=== PATIENT | female | born 1975 | race African-American/Black ===

== ENCOUNTER 2016-03-29 20:55 | Inpatient (IN) | payer MEDICAID ==
[~2016-03-29] VITALS: Ht 170.2 cm; Wt 119.9 kg
[2016-03-29] MEDS: NITROGLYCERIN 0.4 MG SL 25 TABS/BTL SL SCH ×3 (20:50→21:25)
[~2016-03-29 20:55] MED LIST: ASPI81TA45 PO; BLOOKIT5; FURO40TA PO; ISOS60 PO; LISI-363 PO; METF500 PO; METO50TA PO
[2016-03-29 20:58] VITALS: BP 199/113; PULSE 124; RESP 18; TEMP 98.4; O2SAT 96
[2016-03-29] MEDS ORDERED: FURO1TAB62 PO (21:11)
[2016-03-29] MEDS ORDERED: LISI-515 PO (21:11)
[2016-03-29] MEDS ORDERED: METF500T PO (21:11)
[2016-03-29] MEDS ORDERED: METO50TA PO (21:11)
[2016-03-29] MEDS ORDERED: ASPIRIN 81 MG CHEW TAB PO ONE (21:15)
[2016-03-29] MEDS ORDERED: NITROGLYCERIN 2% OINT 1 GM PACKET TOP ONE (21:15)
[2016-03-29] MEDS ORDERED: SODIUM CHLORIDE 0.9% FLUSH 5 ML FLUSH IVF PRN (21:15)
--- NOTE | 2016-03-29 21:20 | PD ---
HPI Chief Complaint: Chest Pain Time Seen by Provider: 21:05 Travel History International Travel<30 days: No Contact w/Intl Traveler<30days: No Traveled to known affect area: No History of Present Illness HPI The patient is a 40 year old female who presents to the [facility] emergency department with a history of Tuesday not beginning to feel well. The patient reports that she had a friend of her child's come over that was sick and she thought that she may be getting the illness. She reports that she began to have chills and a feverish sensation without a fever when she checked. She reports that she then began to have a dry cough and felt like something was stuck in her throat almost like a postnasal drip. She denies having any nasal congestion or discharge associated with this. She reports that she then began to have chest pain and shortness of breath. She reports that she does have a history of congestive heart failure. She reports that she's had problems with her breathing since June 2014 after having complications from a C -section delivery. The patient reports that she has a history of hyperthyroid disorder. She reports that she is supposed to be followed by an offal baler , however she is having difficulty getting into one related to her insurance. She has also not seen a primary care doctor recently as her insurance has changed and she did not receive her card. The patient reports that she has had some weight loss recently related to increased activity. She denies having any worsening edema. She reports that she ran out of a month ago her furosemide and lisinopril. She reports that she has been having the dose of her metoprolol as metformin to make this last longer. The patient arrives anxious appearing, diaphoretic, tachycardic, and hypertensive. The patient reports that she believes that she may have had a stroke or heart attack in the past. She is not sure which. The patient reports that she has had vomiting related to her throat congestion and a posttussive emesis. She reports that her stools have been slightly loose. The patient denies any recent neck pain, abdominal pain, urinary symptoms, or neurologic symptoms. LMP: [facility] Past Medical History Narrative Medical The patient's past medical history is significant for obesity, hypertension, hypertensive cardiomyopathy with mild left ventricular hypertrophy and a prior ejection fraction of 40-45% with diffuse hypokinesis on an echo that was done in June 2014, history of diabetes mellitus, history of Graves' disease, History of anxiety disorder. Anxiety: Yes Cancer: No Cardiovascular Problems: Yes Chest Pain: Yes (FEB 2014) Congestive Heart Failure: Yes (HX FEB 2014) Diabetes: Yes Diminished Hearing: No Endocrine: Yes (GRAVES DISEASE) Genitourinary: No Hypertension: Yes Immune Disorder: No Musculoskeletal: No Neurologic: No Reproductive: No Respiratory: Yes Thyroid Disease: Yes (HYPERTHYROIDISM) LMP: IUD PT STATES SHE DOESNT GET THEM : 5 Para: 4 Miscarriage: 0 : 0 Past Surgical History Narrative Surgical The patient's past surgical history is significant for a 5 Section: Yes (X5) Gynecologic Surgery: Yes Hysterectomy: Yes Other Surgery: Yes (c-[id number]) Social History Alcohol Use: No Tobacco Use: No Substance Use: Yes (pot) Allergies-Medications (Allergen,Severity, Reaction): Coded Allergies: Thyroid Agents (Verified Allergy, Intermediate, 03/29/16) Reported Meds & Prescriptions Reported Meds & Active Scripts Active Reported Lasix (Furosemide) 20 Mg Tab 20 Mg PO BID Lisinopril 20 Mg Tab 20 Mg PO DAILY Metformin (Metformin HCl) 500 Mg Tab 500 Mg PO BIDPC With meals Metoprolol Tartrate 50 Mg Tab 50 Mg PO BID Review of Systems Except as stated in HPI: all other systems reviewed are Neg General / Constitutional: Positive: Fever (fever is), Chills Eyes: No: Visual changes HENT: Positive: Congestion, No: Headaches Cardiovascular: Positive: Chest Pain or Discomfort, Palpitations, Tachycardia, Dyspnea on exertion, No: Edema Respiratory: Positive: Cough, Shortness of Breath Gastrointestinal: No: Abdominal Pain Genitourinary: No: Dysuria Musculoskeletal: No: Pain Skin: No Rash Neurologic: No: Weakness Psychiatric: No: Depression Endocrine: No: Polydipsia Hematologic/Lymphatic: No: Easy Bruising Physical Exam Narrative General: The patient is a well-developed well-nourished female, anxious appearing on arrival, diaphoretic, tremulous, hypertensive, and tachycardic. Head and Neck exam: Head is normocephalic atraumatic. Eyes: Pupils are equal round and reactive to light. Nose: Midline septum with pink mucous membranes Mouth: Dentition unremarkable. Moist mucus membranes. Posterior oropharynx is not erythematous. No tonsillar hypertrophy. Uvula midline. Airway patent. Neck: No palpable lymphadenopathy. No nuchal rigidity. No thyromegaly. Cardiovascular: Sinus tachycardia in the low 100s without murmurs, gallops, or rubs. No pulse deficit to the extremities and simultaneous palpation of her radial artery and auscultation. Lungs: Clear to auscultation bilaterally. No wheezes, rhonchi, or rales. Abdomen: Soft, without tenderness to palpation in all 4 quadrants of the abdomen. No guarding, rebound, or rigidity. Normal bowel sounds are audible. Extremities: No clubbing or cyanosis. The patient has trace pedal edema.. 2+ pulses in all 4 extremities. No calf tenderness on palpation. Back: No spinous process tenderness to palpation. No costovertebral angle tenderness to palpation. Neurologic Exam: Grossly nonfocal. She is tremulous. Skin Exam: No rash noted. Intact skin that is warm and diaphoretic. Data Data Last Documented VS Vital Signs Date Time Temp Pulse Resp B/P Pulse Ox O2 Delivery O2 Flow Rate FiO2 03/29/16 22:51 96 Room Air 03/29/16 22:50 109 22 178/84 03/29/16 20:58 98.4 Orders Electrocardiogram (03/29/16 21:05) B-Type Natriuretic Peptide (03/29/16 21:05) Ckmb (Isoenzyme) Profile (03/29/16 21:05) Complete Blood Count With Diff (03/29/16 21:05) Comprehensive Metabolic Panel (03/29/16 21:05) D-Dimer (03/29/16 21:05) Magnesium (Mg) (03/29/16 21:05) Prothrombin Time / Inr (Pt) (03/29/16 21:05) Act Partial Throm Time (Ptt) (03/29/16 21:05) Troponin I (03/29/16 21:05) Lipase (03/29/16 21:05) Chest, Single Ap (03/29/16 21:05) Ecg Monitoring (03/29/16 21:05) Bilateral Bp Monitoring (03/29/16 21:05) Iv Access Insert/Monitor (03/29/16 21:05) Oximetry (03/29/16 21:05) Oxygen Administration (03/29/16 21:05) Aspirin Chew (Aspirin Chew) (03/29/16 21:15) Nitroglycerin 2% Oint (Nitroglycerin 2% (03/29/16 21:15) Sodium Chloride 0.9% Flush (Ns Flush) (03/29/16 21:15) Nitroglycerin Sl (Nitrostat Sl) (03/29/16 21:15) C-Reactive Protein (Crp) (03/29/16 21:05) Urinalysis - C+S If Indicated (03/29/16 21:05) Thyroid Stimulating Hormone (03/29/16 21:05) Ed Urine Pregnancytest Poc (03/29/16 21:05) CKMB (03/29/16 21:16) CKMB% (03/29/16 21:16) Ct Pulmonary Angiogram (03/29/16 22:30) Labetalol Inj (Trandate Inj) (03/29/16 22:45) Furosemide Inj (Lasix Inj) (03/29/16 23:00) Admit Order (Ed Use Only) (03/29/16 22:59) Labs Laboratory Tests Test 03/29/16 21:16 White Blood Count 7.9 TH/MM3 Red Blood Count 5.32 MIL/MM3 Hemoglobin 14.1 GM/DL Hematocrit 40.5 % Mean Corpuscular Volume 76.0 FL Mean Corpuscular Hemoglobin 26.4 PG Mean Corpuscular Hemoglobin 34.8 % Concent Red Cell Distribution Width 13.9 % Platelet Count 251 TH/MM3 Mean Platelet Volume 8.4 FL Neutrophils (%) (Auto) 56.5 % Lymphocytes (%) (Auto) 25.2 % Monocytes (%) (Auto) 17.7 % Eosinophils (%) (Auto) 0.4 % Basophils (%) (Auto) 0.2 % Neutrophils # (Auto) 4.4 TH/MM3 Lymphocytes # (Auto) 2.0 TH/MM3 Monocytes # (Auto) 1.4 TH/MM3 Eosinophils # (Auto) 0.0 TH/MM3 Basophils # (Auto) 0.0 TH/MM3 CBC Comment DIFF FINAL Differential Comment Prothrombin Time 11.1 SEC Prothromb Time International 1.0 RATIO Ratio Activated Partial 26.7 SEC Thromboplast Time D-Dimer Quantitative (PE/DVT) 1.07 MG/L FEU Sodium Level 141 MEQ/L Potassium Level 3.8 MEQ/L Chloride Level 106 MEQ/L Carbon Dioxide Level 27.1 MEQ/L Anion Gap 8 MEQ/L Blood Urea Nitrogen 7 MG/DL Creatinine 0.89 MG/DL Estimat Glomerular Filtration 85 ML/MIN Rate Random Glucose 126 MG/DL Calcium Level 8.7 MG/DL Magnesium Level 1.8 MG/DL Total Bilirubin 0.3 MG/DL Aspartate Amino Transf 28 U/L (AST/SGOT) Alanine Aminotransferase 28 U/L (ALT/SGPT) Alkaline Phosphatase 84 U/L Total Creatine Kinase 126 U/L Creatine Kinase MB 1.8 NG/ML Troponin I 0.10 NG/ML C-Reactive Protein 4.60 MG/DL B-Type Natriuretic Peptide 272 PG/ML Total Protein 7.6 GM/DL Albumin 3.2 GM/DL Lipase 153 U/L Thyroid Stimulating Hormone LESS THAN 3rd Gen 0.005 uIU/ML MDM Medical Decision Making Medical Screen Exam Complete: Yes Emergency Medical Condition: Yes Medical Record Reviewed: Yes Interpretation(s) Last Impressions CT Angiography 03/29/160 Signed Impressions: Service Date/Time: Tuesday, March 29, 2016 23:19 - CONCLUSION: 1. No evidence of pulmonary embolism. 2. Small mild right lower lung infiltrate. Travis Amaya MD Chest X-Ray 03/29/162104 Signed Impressions: Service Date/Time: Tuesday, March 29, 2016 21:15 - CONCLUSION: 1. Cardiomegaly with mild basilar airspace disease. Car Perez MD Differential Diagnosis Thyrotoxic storm, versus congestive heart failure exacerbation, versus pulmonary embolism versus hypertensive urgency Narrative Course During the course of the patients emergency department visit, the patients history, examination, and differential diagnosis were reviewed with the patient. The patient had IV access obtained and blood work sent for analysis. The patient was placed on a cardiac catheterization technician with oximetry and blood pressure monitoring. An EKG was done on arrival, the patient's EKG shows a sinus tachycardia rate of 110 QRS duration is 95 ms QTC is 414 ms T waves are inverted in V5 V6 the patient has evidence of left ventricular hypertrophy from poorly controlled hypertension, no acute ST segment elevation is noted. The patient was initially provided 162 mg of aspirin by mouth. The patient is given nitroglycerin sublingual every 5 minutes 3 both for the chest pain into lower her blood pressure, nitroglycerin 1 inch the chest wall was applied. The patients laboratory studies were reviewed and remarkable for white count of 7.9, hemoglobin 14.1, platelets 251 with 17.7 monocytes. CMP is remarkable for glucose 126, CPK within normal limits, troponin I 0.10, C-reactive protein 4.60, TSH less than 0.005, d-dimer 1.07, PT PTT within normal limits. Urinalysis shows 10 ketones rib bacteria, otherwise unremarkable. Radiology studies were reviewed and remarkable for a chest x-ray that shows cardiomegaly with mild bibasilar airspace disease. A CTA to rule out PE shows no evidence of pulmonary embolism, small mild right lower lung infiltrate. The patients results were discussed with the patient, including the plan of care. I explained that further testing and/ or monitoring is indicated based on the patients history, examination, and/ or laboratory findings. Therefore, I recommended admission for additional evaluation. The patient expressed understanding and was agreeable with this plan. The patient was admitted to the hospital in stable condition and [facility] Physician Communication Physician Communication The patient's case was discussed with Dr. Levi, who did agree to admit the patient for further evaluation and treatment at this time. Diagnosis Primary Impression: Chest pain, rule out acute myocardial infarction Additional Impressions: Hyperthyroidism Elevated troponin Acute exacerbation of congestive heart failure Qualified Code: I50.9 - Acute on chronic congestive heart failure, unspecified congestive heart failure type Oly Masters MD Mar 29, 2016 21:20
[2016-03-29 21:44] LABS: AUTOMATED NEUTROPHIL # 4.4 TH/MM3 (1.8-7.7); BASOPHIL % 0.2 % (0.0-2.0); EOSINOPHIL % 0.4 % (0.0-4.0); HEMATOCRIT 40.5 % (35.0-46.0); HEMO FLAGS DIFF FINAL; LYMPH % 25.2 % (9.0-44.0); MEAN CORPUSCULAR HEMOGLOBIN 26.4 PG (27.0-34.0); MEAN CORPUSCULAR HGB CONC 34.8 % (32.0-36.0); MONO % 17.7 % (0.0-8.0); NEUT % 56.5 % (16.0-70.0); PLATELET COUNT 251 TH/MM3 (150-450); RED BLOOD COUNT 5.32 MIL/MM3 (4.00-5.30); RED CELL DISTRIBUTION WIDTH 13.9 % (11.6-17.2); WHITE BLOOD COUNT 7.9 TH/MM3 (4.0-11.0)
[2016-03-29 22:00] LABS: APTT (PATIENT) 26.7 SEC (24.3-30.1); PROTHROMBIN TIME - PATIENT 11.1 SEC (9.8-11.6)
[2016-03-29 22:08] LABS: ANION GAP 8 MEQ/L (5-15); AST (GOT) 28 U/L (15-37); BICARBONATE 27.1 MEQ/L (21.0-32.0); BLOOD UREA NITROGEN 7 MG/DL (7-18); CHLORIDE 106 MEQ/L (98-107); GLOMERULAR FILTRATION RATE 85 ML/MIN (>89); MAGNESIUM 1.8 MG/DL (1.5-2.5); POTASSIUM 3.8 MEQ/L (3.5-5.1); SODIUM (NA) 141 MEQ/L (136-145)
[2016-03-29 22:17] LABS: ALKALINE PHOSPHATASE 84 U/L (45-117); ALT (GPT) 28 U/L (10-53); CREATINE KINASE 126 U/L (26-192); TOTAL BILIRUBIN ADULT 0.3 MG/DL (0.2-1.0)
[2016-03-29 22:43] LABS: CKMB 1.8 NG/ML (0.5-3.6)
[2016-03-29] MEDS ORDERED: LABETALOL HCL 100 MG/20 ML VIAL IV PUSH ONE (22:45)
--- NOTE | 2016-03-29 22:45 | RADRPT ---
EXAM DATE/TIME: 03/29/2016 21:15 [facility] COMPARISON: CHEST SINGLE AP, March 01, 2014, 22:48. INDICATIONS : Chest pain. MEDICAL HISTORY : None. SURGICAL HISTORY : None. ENCOUNTER: Initial ACUITY: 3 days PAIN SCORE: 10/10 LOCATION: middle chest. FINDINGS: A single view of the chest demonstrates cardiomegaly. Mild basilar airspace disease. No effusion. No pneumothorax. CONCLUSION: 1. Cardiomegaly with mild basilar airspace disease. Car Perez MD on March 29, 2016 at 22:43 Board Certified Radiologist. This report was verified electronically.
[2016-03-29 22:50] VITALS: BP 178/84; PULSE 109; RESP 22; O2SAT 96
[2016-03-29 22:51] VITALS: O2SAT 96
[2016-03-29] MEDS ORDERED: FUROSEMIDE 40 MG/4 ML VIAL IV PUSH ONE (23:00)
[2016-03-29 23:13] VITALS: BP 219/107; PULSE 109; RESP 18; TEMP 98.1; O2SAT 94
[2016-03-29] MEDS ORDERED: IOHEXOL 350 MG/ML 10 ML VIAL (for RAD DIAG) IV ONE (23:23)
--- NOTE | 2016-03-29 23:50 | RADRPT ---
EXAM DATE/TIME: 03/29/2016 23:19 [facility] COMPARISON: CT PULMONARY ANGIOGRAM, July 11, 2014, 19:34. INDICATIONS : Chest pain, short of breath and elevated d-dimer. IV CONTRAST: 73 cc Omnipaque 350 (iohexol) IV RADIATION DOSE: 23.38 CTDIvol (mGy) MEDICAL HISTORY : Hypertension. graves disease, diabetes. SURGICAL HISTORY : None. ENCOUNTER: Initial ACUITY: 1 day PAIN SCALE: 8/10 LOCATION: chest TECHNIQUE: Volumetric scanning of the chest was performed using a pulmonary embolism protocol MIP images were re constructed. Using automated exposure control and adjustment of the mA and/or kV according to patien t size, radiation dose was kept as low as reasonably achievable to obtain optimal diagnostic quality images. FINDINGS: PULMONARY ARTERIES: No filling defects are seen in the pulmonary arteries through the segmental level. LUNGS: There is a very mild small infiltrate in the posterior right lower lung. Otherwise, the lungs are hu ar and well-aerated. PLEURAE: There is no pleural thickening or pleural effusion. MEDIASTINUM: There is good visualization of the great vessels of the middle mediastinum. No evidence of mediastin al or hilar adenopathy/mass. Heart size is enlarged but stable. MUSCULOSKELETAL: Within normal limits for patient age. MISCELLANEOUS: The visualized upper abdominal organs demonstrate no acute abnormality. CONCLUSION: 1. No evidence of pulmonary embolism. 2. Small mild right lower lung infiltrate. Travis Amaya MD on March 29, 2016 at 23:47 Board Certified Radiologist. This report was verified electronically.
[2016-03-30] VITALS (11 sets, daily range): BP systolic 138–195; BP diastolic 58–107; PULSE 81–114; RESP 17–22; TEMP 98.1–98.6; O2SAT 95–99
[2016-03-30 00:16] LABS: BACTERIA, URINE RARE /hpf; BLOOD, URINE NEG (NEG); COMMENT (UR) CULT NOT INDICATED; CULTURE IF INDICATED CULT NOT INDICATED; GLUCOSE,URINE NEG (NEG); HYALINE CAST, URINE 1 /lpf (RARE); KETONE, URINE 10 mg/dL (NEG); MUCUS URINE FEW /lpf (OCC); NITRITE,URINE NEG (NEG); PH, URINE 5.5 (5.0-8.5); SQUAMOUS EPITHELIAL CELL URINE 2 /hpf (0-5); URINE COLOR YELLOW (YELLW/STRAW)
[2016-03-30] MEDS ORDERED: ONDANSETRON HCL 4 MG/2 ML VIAL IVP PRN (00:45)
[2016-03-30] MEDS ORDERED: cloNIDine HCL 0.2 MG TAB PO PRN (00:45)
[2016-03-30] MEDS ORDERED: NALOXONE HCL 0.4 MG/ML AMP IV PRN (00:45)
[2016-03-30] MEDS ORDERED: ACETAMINOPHEN 325 MG TAB PO PRN ×2 (00:45)
[2016-03-30] MEDS ORDERED: ENALAPRILAT 2.5 MG/2 ML VIAL IV PUSH PRN (00:45)
[2016-03-30] MEDS ORDERED: SODIUM CHLORIDE 0.9% FLUSH 5 ML FLUSH FLUSH PRN (00:45)
--- NOTE | 2016-03-30 00:50 | HHI.HP ---
HPI Service [facility] Primary Care Physician No Primary Care Physician Admission Diagnosis cp ro mi, intermediate troponin, chf exacerbation, hyperthyroid Diagnoses: Chief Complaint: Chest pain/shortness of breath Travel History International Travel<30 Days: No Contact w/Intl Traveler <30 Da: No Traveled to Known Affected Are: No History of Present Illness The patient is a 40-year-old female with past medical history of Graves' disease and cardiomyopathy who is presenting to the hospital with chest pain and shortness of breath. She says she has had a rough week. She said she traveled to [place] and has had a lot of anxiety. She said the flu went through her household. She has been experiencing a dry cough with no sputum production. She says she has been taking Mucinex to try to cough things up. She said that today her chest started hurting her. The chest pain is located at the left side of her chest and radiates down her left arm. She said it was a 10 out of 10 pain in severity at its worst. She said the chest pain is gone at this time. She said she had a coughing spell earlier which led to a bout of vomiting. She has been experiencing chills. She has shortness of breath. She says she is unable to lie flat. She sometimes wakes up from a sound sleep very short of breath. She says her weight fluctuates. She has not noticed swelling in her lower extremities. She is currently search of a primary care doctor. 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 Review of Systems Constitutional: COMPLAINS OF: Diaphoretic episodes, Chills Respiratory: COMPLAINS OF: Cough, Shortness of breath, DENIES: Sputum production Cardiovascular: COMPLAINS OF: Chest pain, Dyspnea on Exertion, PND, Orthopnea, DENIES: Lower Extremity Edema Gastrointestinal: COMPLAINS OF: Nausea, Vomiting Neurologic: COMPLAINS OF: Tremor Psychiatric: COMPLAINS OF: Anxiety Past Family Social History Past Medical History Graves' disease Cardiomyopathy Hypertension Diabetes Past Surgical History 4 Partial hysterectomy Allergies: Coded Allergies: Thyroid Agents (Verified Allergy, Intermediate, 03/29/16) Active Ordered Medications Current Medications Medications (Trade) Dose Ordered Sig/[place] Route Start Time Stop Time Status Last Admin (NS Flush) 2 ml UNSCH PRN IVF 03/29/16 21:15 (Lasix) 20 mg BID PO 03/30/16 09:00 (Prinivil) 40 mg DAILY PO 03/30/16 00:45 (Tenormin) 50 mg DAILY PO 03/30/16 00:45 (Catapres) 0.2 mg Q6H PRN PO 03/30/16 00:45 (Vasotec Inj) 2.5 mg Q6H PRN IV PUSH 03/30/16 00:45 Family History Diabetes CAD Social History The patient does not smoke. She has occasional alcohol use. Physical Exam Vital Signs Vital Signs Date Time Temp Pulse Resp B/P Pulse Ox O2 Delivery O2 Flow Rate FiO2 03/30/16 00:34 98.1 112 20 191/88 96 Room Air 03/29/16 23:13 98.1 109 18 219/107 94 Room Air 03/29/16 22:51 96 Room Air 03/29/16 22:51 95 Room Air 03/29/16 22:50 109 22 178/84 96 Room Air 03/29/16 21:05 117 25 97 Room Air 03/29/16 20:58 98.4 124 18 199/113 96 03/29/16 20:55 18 Physical Exam GENERAL: This is a well-nourished, well-developed patient, in no apparent distress. SKIN: No rashes, ecchymoses or lesions. HEAD: Atraumatic. Normocephalic. No temporal or scalp tenderness. EYES: Pupils equal round and reactive. Extraocular motions intact. No scleral icterus. No injection or drainage. ENT: Nose without bleeding, purulent drainage or septal hematoma. Throat without erythema, tonsillar hypertrophy or exudate. Uvula midline. Airway patent. NECK: Trachea midline. No JVD or lymphadenopathy. Supple, nontender, no meningeal signs. CARDIOVASCULAR: Tachycardic without murmurs, gallops, or rubs. RESPIRATORY: Clear to auscultation. Breath sounds equal bilaterally. No wheezes , rales, or rhonchi. GASTROINTESTINAL: Abdomen soft, non-tender, nondistended. No hepato-splenomegaly , or palpable masses. No guarding. MUSCULOSKELETAL: Extremities without clubbing, cyanosis, or edema. No joint tenderness, effusion, or edema noted. NEUROLOGICAL: Awake and alert. Cranial nerves II through XII intact. Motor and sensory grossly within normal limits. Five out of 5 muscle strength in all muscle groups. Normal speech. PSYCH: Anxious. Laboratory Laboratory Tests Test 03/29/16 03/29/16 21:16 23:44 White Blood Count 7.9 Red Blood Count 5.32 Hemoglobin 14.1 Hematocrit 40.5 Mean Corpuscular Volume 76.0 Mean Corpuscular Hemoglobin 26.4 Mean Corpuscular Hemoglobin 34.8 Concent Red Cell Distribution Width 13.9 Platelet Count 251 Mean Platelet Volume 8.4 Neutrophils (%) (Auto) 56.5 Lymphocytes (%) (Auto) 25.2 Monocytes (%) (Auto) 17.7 Eosinophils (%) (Auto) 0.4 Basophils (%) (Auto) 0.2 Neutrophils # (Auto) 4.4 Lymphocytes # (Auto) 2.0 Monocytes # (Auto) 1.4 Eosinophils # (Auto) 0.0 Basophils # (Auto) 0.0 CBC Comment DIFF FINAL Differential Comment Prothrombin Time 11.1 Prothromb Time International 1.0 Ratio Activated Partial 26.7 Thromboplast Time D-Dimer Quantitative (PE/DVT) 1.07 Sodium Level 141 Potassium Level 3.8 Chloride Level 106 Carbon Dioxide Level 27.1 Anion Gap 8 Blood Urea Nitrogen 7 Creatinine 0.89 Estimat Glomerular Filtration 85 Rate Random Glucose 126 Calcium Level 8.7 Magnesium Level 1.8 Total Bilirubin 0.3 Aspartate Amino Transf 28 (AST/SGOT) Alanine Aminotransferase 28 (ALT/SGPT) Alkaline Phosphatase 84 Total Creatine Kinase 126 Creatine Kinase MB 1.8 Troponin I 0.10 C-Reactive Protein 4.60 B-Type Natriuretic Peptide 272 Total Protein 7.6 Albumin 3.2 Lipase 153 Thyroid Stimulating Hormone LESS THAN 3rd Gen 0.005 Urine Color YELLOW Urine Turbidity CLEAR Urine pH 5.5 Urine Specific [place] 1.019 Urine Protein NEG Urine Glucose (UA) NEG Urine Ketones 10 Urine Occult Blood NEG Urine Nitrite NEG Urine Bilirubin NEG Urine Urobilinogen LESS THAN 2.0 Urine Leukocyte Esterase NEG Urine RBC 1 Urine WBC LESS THAN 1 Urine Squamous Epithelial 2 Cells Urine Bacteria RARE Urine Hyaline Casts 1 Urine Mucus FEW Microscopic Urinalysis Comment CULT NOT INDICATED Result Diagram: 03/29/16211503/29/162115 Imaging Last Impressions CT Angiography 03/29/162229 Signed Impressions: Service Date/Time: Tuesday, March 29, 2016 23:19 - CONCLUSION: 1. No evidence of pulmonary embolism. 2. Small mild right lower lung infiltrate. Travis Amaya MD Chest X-Ray 03/29/162104 Signed Impressions: Service Date/Time: Tuesday, March 29, 2016 21:15 - CONCLUSION: 1. Cardiomegaly with mild basilar airspace disease. Car Perez MD Assessment and Plan Assessment and Plan Chest pain/ cardiomyopathy The pt has a history of cardiomyopathy s/t Grave's Disease. She presents with left sided chest pain. She has never had a stress test or cardiac cath. Symptoms have resolved. EKG with sinus tachycardia and inverted T waves in V5 and V6. Initial troponin is 0.1. BNP is 272. CT scan did reveal an infiltrate which could explain the pt's chest pain. No PE identified. - trend troponins. - monitor on telemetry. - diurese with Lasix. - consult cardiology. - antibiotics for PNA. - oxygen as needed. - PT. Grave's Disease The pt presents with symptoms of thyrotoxicosis. She improved with labetalol. - start atenolol 50 mg daily. Hold home Lopressor. - consider adding methimazole. - check free T3 and T4. Hypertensive emergency The pt's blood pressure has been markedly elevated. - resume lisinopril and add atenolol. Will add amlodipine if needed. - Vasotec and clonidine as needed. CAP CT scan revealed a small right sided infiltrate. - start ceftriaxone and azithromycin. - sputum culture. Diabetes The pt is on metformin as an outpt. - hold metformin. - insulin sliding scale. PPx: Lovenox. Code Status Full. Discussed Condition With Pt, Dr. Masters. Physician Certification 2 Midnight Certification Type: Admission for Inpatient Services Order for Inpatient Services The services are ordered in accordance with Medicare regulations or non- Medicare payer requirements, as applicable. In the case of services not specified as inpatient-only, they are appropriately provided as inpatient services in accordance with the 2-midnight benchmark. Estimated LOS (days): 2 days is the estimated time the patient will need to remain in the hospital, assuming treatment plan goals are met and no additional complications. Post-Hospital Plan: Home Sayess,Thomas. DO Mar 30, 2016 00:50
[2016-03-30] MEDS: LISINOPRIL 20 MG TAB PO SCH ×2 (02:34→09:27)
[2016-03-30] MEDS: DOCUSATE SODIUM 100 MG CAP PO SCH ×2 (02:34→12:37)
[2016-03-30] MEDS: ENOXAPARIN SODIUM 40 MG/0.4 ML SYRINGE SQ SCH (02:35)
[2016-03-30] MEDS: cefTRIAXone INJ 1,000 MG in SODIUM CHLORIDE 0.9% INJ 100 ML IV SCH (02:35)
[2016-03-30] MEDS: ATENOLOL 50 MG TAB PO SCH (04:05)
[2016-03-30] MEDS: AZITHROMYCIN INJ 500 MG in SODIUM CHLOR 0.9% 250 ML INJ 250 ML IV SCH (04:06)
[2016-03-30 04:33] LABS: AUTOMATED NEUTROPHIL # 2.6 TH/MM3 (1.8-7.7); BASOPHIL % 0.3 % (0.0-2.0); EOSINOPHIL % 0.5 % (0.0-4.0); HEMATOCRIT 38.7 % (35.0-46.0); HEMO FLAGS DIFF FINAL; LYMPH % 28.1 % (9.0-44.0); LYMPHOCYTE # 1.5 TH/MM3 (1.0-4.8); MEAN CORPUSCULAR HEMOGLOBIN 25.4 PG (27.0-34.0); MEAN CORPUSCULAR HGB CONC 33.9 % (32.0-36.0); MONO % 21.8 % (0.0-8.0); NEUT % 49.3 % (16.0-70.0); PLATELET COUNT 219 TH/MM3 (150-450); RED BLOOD COUNT 5.16 MIL/MM3 (4.00-5.30); RED CELL DISTRIBUTION WIDTH 13.6 % (11.6-17.2); WHITE BLOOD COUNT 5.4 TH/MM3 (4.0-11.0)
[2016-03-30 04:52] LABS: ALT (GPT) 26 U/L (10-53); ANION GAP 9 MEQ/L (5-15); AST (GOT) 23 U/L (15-37); BICARBONATE 26.6 MEQ/L (21.0-32.0); BLOOD UREA NITROGEN 8 MG/DL (7-18); CHLORIDE 104 MEQ/L (98-107); GLOMERULAR FILTRATION RATE 128 ML/MIN (>89); POTASSIUM 3.5 MEQ/L (3.5-5.1); SODIUM (NA) 140 MEQ/L (136-145)
[2016-03-30 04:53] LABS: FREE T3 9.18 PG/ML (2.18-3.98); FREE T4 3.63 NG/DL (0.76-1.46)
[2016-03-30 04:54] LABS: ALKALINE PHOSPHATASE 76 U/L (45-117); TOTAL BILIRUBIN ADULT 0.3 MG/DL (0.2-1.0)
[2016-03-30] MEDS: INSULIN ASPART SUPPLEMENTAL SCALE SQ SCH ×4 (06:55→21:35)
[2016-03-30] MEDS: SODIUM CHLORIDE 0.9% FLUSH 5 ML FLUSH FLUSH SCH ×2 (09:24→21:35)
--- NOTE | 2016-03-30 11:53 | MB ---
cc: GERARDO WONG MD DATE OF CONSULTATION 03/30/2016 DATE OF 1975 REASON FOR CONSULTATION Cardiomyopathy. HISTORY OF PRESENT ILLNESS Ms. Reed is a 40-year-old female who does have a history of a cardiomyopathy, hypertension and noncompliance. 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 She has been seen by multiple cardiologists including myself and not followed up. As well, she has not had a PCP and thus has run out of her BP meds several months ago. She reports that despite this, she had been doing just fine. She recently had a family trip to [place] where everybody had the flu. Now she has had a dry cough, fever and chills and pleuritic chest pain. She subsequently presented to the emergency room for assistance. She notes that she has had chest pain with coughing that has been up to 10/10. PAST MEDICAL HISTORY: Significant for - 1. Hypertension. 2. Cardiomyopathy. 3. Diabetes. 4. Graves disease. 5. Noncompliance. 6. Morbid obesity. SURGICAL HISTORY 1. Partial hysterectomy. 2. . ALLERGIES Reportedly to thyroid agents. OUTPATIENT MEDICATIONS None. As well, she cannot really remember her previous medications and dosing. FAMILY HISTORY Positive for CAD and diabetes. SOCIAL HISTORY The patient does not smoke. REVIEW OF SYSTEMS Except what is mentioned in the HPI, all 12 systems are negative. PHYSICAL EXAMINATION VITAL SIGNS: Initial vital signs were 124, 18, 199/113. Presently her blood pressure is 138/85. IN GENERAL: She is a morbidly obese female who is in no apparent distress. NECK: Free from JVD. LUNGS: The lungs and some wheezing/rhonchi in the right base. CARDIOVASCULAR EXAMINATION: She has a normal S1 and S1. I did not appreciate any murmurs, rubs or gallops. ABDOMEN: Soft. EXTREMITIES: Free from edema. EKG Sinus rhythm with inverted T-waves. LABORATORY VALUES Significant for white count of 5.4. Her creatinine is 0.62. Troponins are 0.01/0.01. IMPRESSIONS Cardiomyopathy - The patient does have a longstanding history of the same. I do agree with restarting her on a regimen that includes beta-gricelda, ANA inhibitor and diuretic as you have done. There is no overt failure at this point. It seems that her symptoms are mostly related to her upper respiratory tract illness and possible pneumonia with right lower lobe infiltrate. Of note, her most recent EF was May of 2014 with an EF of 45%. Uncontrolled hypertension - As above. Pleuritic chest pain - This can be managed conservatively by the primary team. URI, possible pneumonia - This will be managed by the primary team as well. I will be available on a p.r.n. basis and would be happy to see her should there be any further questions. Sincerely, Eboni Ovalles/SSB /7:51 AM /11:38 AM
--- NOTE | 2016-03-30 16:33 | EKG ---
Date Performed: 03/29/2016 Time Performed: 21:08:48 PTAGE: 40 years EKG: SINUS TACHYCARDIA POSSIBLE LEFT ATRIAL ENLARGEMENT LEFT VENTRICULAR HYPERTROPHY AND ST-T CH CHLOE When compared to previous tracing, the patient now has lateral ST depression, which may be secon bryce to ischemia and or Hypertrophy. Clinical correlation is suggested. ABNORMAL ECG PREVIOUS TRACING : 07/11/2014 17.15.14 DOCTOR: Sandra Paz Interpretating Date/Time 03/30/2016 16:32:55
--- NOTE | 2016-03-30 18:46 | HHI.PR ---
Addendum to Inpatient Note Addendum Reason: Additional Documentation Additional Information Patient c/o cough, sob improving. denies cp. Denies fevers or chills. Awake and alert, no respiratory distress. Auscultation of the lungs show diminished air entry bilaterally. S1S2 RRR, 1. Grave's hyperthyroidism 2. Cardiomyopathy 3. Demand ischemia 4. Hypertensive emergency 5. Hyperthyroidism Cardiology consulted. No chest pain currently. Will obtain a beta HCG and start the patient on Methimazole to treat hyperthyroidism. Continue IV antibiotics, supplemental o2 as needed. Place on duoneb's treatment. Samson Mcfadden MD Mar 30, 2016 18:46
[2016-03-30] MEDS ORDERED: MORPHINE SULFATE 4 MG/ML INJ IV PUSH PRN (19:00)
[2016-03-30] MEDS ORDERED: RESP: ALBUTEROL 2.5 MG/IPRATROPIUM 0.5 MG NEB (PRN) NEB (19:15)
[2016-03-30] MEDS: RESP: ALBUTEROL 2.5 MG/IPRATROPIUM 0.5 MG NEB (SCH) NEB (21:15)
[2016-03-30] MEDS: FUROSEMIDE 20 MG TAB PO SCH (21:35)
[2016-03-31] VITALS: BP 150/80; PULSE 91; RESP 18; TEMP 98.3; O2SAT 98
[2016-03-31 00:13] LABS: BETA HCG QUANT LESS THAN 1 MIU/ML (0-5)
[2016-03-31] MEDS: DOCUSATE SODIUM 100 MG CAP PO SCH ×2 (00:23→12:45)
[2016-03-31] MEDS: ENOXAPARIN SODIUM 40 MG/0.4 ML SYRINGE SQ SCH (00:27)
[2016-03-31] MEDS: cefTRIAXone INJ 1,000 MG in SODIUM CHLORIDE 0.9% INJ 100 ML IV SCH (00:29)
[2016-03-31] MEDS: AZITHROMYCIN INJ 500 MG in SODIUM CHLOR 0.9% 250 ML INJ 250 ML IV SCH (01:20)
[2016-03-31 04:00] VITALS: BP 155/80; PULSE 92; RESP 18; TEMP 98.2; O2SAT 98
[2016-03-31 06:52] LABS: AUTOMATED NEUTROPHIL # 1.7 TH/MM3 (1.8-7.7); BASOPHIL % 0.7 % (0.0-2.0); EOSINOPHIL # 0.1 TH/MM3 (0-0.4); EOSINOPHIL % 1.6 % (0.0-4.0); HEMATOCRIT 40.7 % (35.0-46.0); HEMO FLAGS DIFF FINAL; LYMPH % 48.5 % (9.0-44.0); LYMPHOCYTE # 2.6 TH/MM3 (1.0-4.8); MEAN CELL VOLUME 76.2 FL (80.0-100.0); MEAN CORPUSCULAR HEMOGLOBIN 25.2 PG (27.0-34.0); MEAN CORPUSCULAR HGB CONC 33.1 % (32.0-36.0); MONO % 18.1 % (0.0-8.0); NEUT % 31.1 % (16.0-70.0); PLATELET COUNT 222 TH/MM3 (150-450); RED BLOOD COUNT 5.35 MIL/MM3 (4.00-5.30); RED CELL DISTRIBUTION WIDTH 13.8 % (11.6-17.2); WHITE BLOOD COUNT 5.4 TH/MM3 (4.0-11.0)
[2016-03-31 07:00] VITALS: BP 148/59; PULSE 89; PULSE 97; RESP 16; TEMP 97.9; O2SAT 97
[2016-03-31] MEDS: INSULIN ASPART SUPPLEMENTAL SCALE SQ SCH ×2 (07:00→11:00)
[2016-03-31 07:03] LABS: ALT (GPT) 28 U/L (10-53); ANION GAP 9 MEQ/L (5-15); AST (GOT) 23 U/L (15-37); BICARBONATE 24.4 MEQ/L (21.0-32.0); BLOOD UREA NITROGEN 9 MG/DL (7-18); CHLORIDE 108 MEQ/L (98-107); GLOMERULAR FILTRATION RATE 168 ML/MIN (>89); MAGNESIUM 1.9 MG/DL (1.5-2.5); POTASSIUM 3.8 MEQ/L (3.5-5.1); SODIUM (NA) 141 MEQ/L (136-145)
[2016-03-31 07:05] LABS: ALKALINE PHOSPHATASE 68 U/L (45-117); TOTAL BILIRUBIN ADULT 0.3 MG/DL (0.2-1.0)
--- NOTE | 2016-03-31 07:41 | PD.CARD.PN ---
Subjective Subjective Remarks Pt without complaints Objective Medications Current Medications Medications (Trade) Dose Ordered Sig/[place] Route Start Time Stop Time Status Last Admin (Lasix) 20 mg BID PO 03/30/16 09:00 03/30/16 21:35 (Prinivil) 40 mg DAILY PO 03/30/16 00:45 03/30/16 09:27 (Tenormin) 50 mg DAILY PO 03/30/16 00:45 03/30/16 04:05 (Catapres) 0.2 mg Q6H PRN PO 03/30/16 00:45 03/30/16 12:48 (Vasotec Inj) 2.5 mg Q6H PRN IV PUSH 03/30/16 00:45 (NS Flush) 2 ml UNSCH PRN FLUSH 03/30/16 00:45 (NS Flush) 2 ml BID FLUSH 03/30/16 09:00 03/30/16 21:35 (Tylenol) 650 mg Q4H PRN PO 03/30/16 00:45 (Zofran Inj) 4 mg Q6H PRN IVP 03/30/16 00:45 (Colace) 100 mg Q12H PO 03/30/16 00:45 03/30/16 12:37 (Lovenox Inj) 40 mg Q24H SQ 03/30/16 00:45 03/31/16 00:27 (Tylenol) 650 mg Q6H PRN PO 03/30/16 00:45 (Roxicodone) 10 mg Q4H PRN PO 03/30/16 00:45 (Roxicodone) 5 mg Q4H PRN PO 03/30/16 00:45 Naloxone HCl 0.4 mg 0.4 mg UNSCH PRN IV 03/30/16 00:45 Ceftriaxone Sodium 1000 mg/ Sodium Chloride 100 ml @ 200 mls/hr Q24H IV 03/30/16 01:00 03/31/16 00:29 (Zithromax Inj/ NS 250 ml Inj) 250 ml @ 250 mls/hr Q24H IV 03/30/16 02:00 03/31/16 01:20 (Flu (Quadrivalent) Vaccine Inj) 0.5 ml ONCE ONCE IM 03/31/16 10:00 03/31/16 10:01 (Morphine Inj) 2 mg Q3H PRN IV PUSH 03/30/16 19:00 Vital Signs / I&O Vital Signs Date Time Temp Pulse Resp B/P Pulse Ox O2 Delivery O2 Flow Rate FiO2 03/31/16 04:00 98.2 92 18 155/80 98 03/31/16 00:00 98.3 91 18 150/80 98 03/30/16 20:00 98.4 92 18 160/73 97 03/30/16 16:00 87 03/30/16 16:00 98.6 91 18 155/58 99 03/30/16 15:26 90 03/30/16 12:30 94 172/104 03/30/16 10:40 98 03/30/16 10:32 98.5 96 17 160/107 96 03/30/16 09:33 94 22 180/95 95 Room Air I/O 03/30/16 03/30/16 03/30/16 03/31/16 03/31/16 03/31/16 07:00 15:00 23:00 07:00 15:00 23:00 Intake Total 0 ml 888 ml Balance 0 ml 888 ml Intake Oral 500 ml IV Total 0 ml 388 ml # Voids 3 3 # Bowel Movements 2 Physical Exam GENERAL: Well developed, well nourished. No acute distress. HEENT: Jugular venous pressure is normal. CHEST: Lungs clear to auscultation bilaterally. Unlabored respiratory effort. CARDIAC: Regular rate and rhythm without S3, S4, or murmur. ABDOMEN: Soft, nontender, no hepatosplenomegaly. Bowel sounds present. EXTREMITIES: No clubbing, cyanosis, or edema. Laboratory Laboratory Tests Test 03/30/16 03/31/16 09:35 05:45 Troponin I 0.10 NG/ML Human Chorionic Gonadotropin, LESS THAN 1 Quant MIU/ML White Blood Count 5.4 TH/MM3 Red Blood Count 5.35 MIL/MM3 Hemoglobin 13.5 GM/DL Hematocrit 40.7 % Mean Corpuscular Volume 76.2 FL Mean Corpuscular Hemoglobin 25.2 PG Mean Corpuscular Hemoglobin 33.1 % Concent Red Cell Distribution Width 13.8 % Platelet Count 222 TH/MM3 Mean Platelet Volume 8.0 FL Neutrophils (%) (Auto) 31.1 % Lymphocytes (%) (Auto) 48.5 % Monocytes (%) (Auto) 18.1 % Eosinophils (%) (Auto) 1.6 % Basophils (%) (Auto) 0.7 % Neutrophils # (Auto) 1.7 TH/MM3 Lymphocytes # (Auto) 2.6 TH/MM3 Monocytes # (Auto) 1.0 TH/MM3 Eosinophils # (Auto) 0.1 TH/MM3 Basophils # (Auto) 0.0 TH/MM3 CBC Comment DIFF FINAL Differential Comment Sodium Level 141 MEQ/L Potassium Level 3.8 MEQ/L Chloride Level 108 MEQ/L Carbon Dioxide Level 24.4 MEQ/L Anion Gap 9 MEQ/L Blood Urea Nitrogen 9 MG/DL Creatinine 0.49 MG/DL Estimat Glomerular Filtration 168 ML/MIN Rate Random Glucose 133 MG/DL Calcium Level 9.0 MG/DL Phosphorus Level 3.9 MG/DL Magnesium Level 1.9 MG/DL Total Bilirubin 0.3 MG/DL Aspartate Amino Transf 23 U/L (AST/SGOT) Alanine Aminotransferase 28 U/L (ALT/SGPT) Alkaline Phosphatase 68 U/L Total Protein 6.8 GM/DL Albumin 3.0 GM/DL Assessment and Plan Assessment and Plan Cardiomyopathy - The patient does have a longstanding history of the same. I do agree with restarting her on a regimen that includes beta-gricelda, ANA inhibitor and diuretic as you have done. There is no overt failure at this point. It seems that her symptoms are mostly related to her upper respiratory tract illness and possible pneumonia with right lower lobe infiltrate. Of note, her most recent EF was May of 2014 with an EF of 45%. 03/31 - no change Uncontrolled hypertension - better add amlodipine Pleuritic chest pain - resolved URI, possible pneumonia - This will be managed by the primary team as well. Noncompliance Dispo- ok for d/c from CV perspective Sandra Paz MD Mar 31, 2016 07:41
[2016-03-31] MEDS: RESP: ALBUTEROL 2.5 MG/IPRATROPIUM 0.5 MG NEB (SCH) NEB ×2 (08:30→11:29)
[2016-03-31 08:32] VITALS: O2SAT 96
[2016-03-31] MEDS ORDERED: amLODIPine BESYLATE 5 MG TAB PO SCH (09:00)
[2016-03-31] MEDS: ATENOLOL 50 MG TAB PO SCH ×2 (09:00→09:30)
[2016-03-31] MEDS: LISINOPRIL 20 MG TAB PO SCH (09:29)
[2016-03-31] MEDS: FUROSEMIDE 20 MG TAB PO SCH (09:29)
[2016-03-31] MEDS: SODIUM CHLORIDE 0.9% FLUSH 5 ML FLUSH FLUSH SCH (09:31)
[2016-03-31] MEDS ORDERED: INFLUENZA VIRUS VACCINE (QUADRIVALENT) 0.5 ML SYR IM ONE (10:00)
[2016-03-31 11:00] VITALS: BP 141/97; PULSE 88; RESP 18; TEMP 97.8; O2SAT 98
[2016-03-31] MEDS ORDERED: FURO20TA PO (14:47)
[2016-03-31] MEDS ORDERED: ATEN50TA PO (14:47)
[2016-03-31] MEDS ORDERED: METF500T PO (14:47)
[2016-03-31] MEDS ORDERED: AMLO5 PO (14:47)
[2016-03-31] MEDS ORDERED: LISI-515 PO (14:47)
--- NOTE | 2016-03-31 14:51 | HHI.DCPOC ---
Discharge Care Plan Diagnosis: (1) CAP (community acquired pneumonia) (2) Cardiomyopathy as manifestation of underlying disease (3) Hyperthyroidism (4) Acute exacerbation of congestive heart failure (5) Elevated troponin Goals to Promote Your Health * To prevent worsening of your condition and complications * To maintain your health at the optimal level Directions to Meet Your Goals Take your medications as prescribed Follow your dietary instruction Follow activity as directed Keep your appointments as scheduled Take your immunizations and boosters as scheduled If your symptoms worsen call your PCP, if no PCP go to Urgent Care Center or Emergency Room Smoking is Dangerous to Your Health. Avoid second hand smoke Call the 24-hour hour crisis hotline for domestic abuse at Samson Mcfadden MD Mar 31, 2016 14:51
[2016-03-31] MEDS ORDERED: AZIT500T2 PO (14:56)
[2016-03-31] MEDS ORDERED: CEFT500T3 PO (14:56)
--- NOTE | 2016-03-31 14:59 | HHI.DS ---
Discharge Summary Admission Date Mar 29, 2016 at 23:01 Discharge Date: Mar 31, 2016 Admitting Diagnosis cp ro mi, intermediate troponin, chf exacerbation, hyperthyroid (1) Demand ischemia ICD Code: I24.8 Diagnosis: Principal (2) Cardiomyopathy as manifestation of underlying disease ICD Code: I43 Diagnosis: Principal (3) Acute exacerbation of congestive heart failure ICD Code: I50.9 Diagnosis: Principal (4) CAP (community acquired pneumonia) ICD Code: J18.9 Diagnosis: Principal (5) Elevated troponin ICD Code: R79.89 Diagnosis: Principal (6) Hyperthyroidism ICD Code: E05.90 Diagnosis: Principal (7) Chest pain, rule out acute myocardial infarction ICD Code: R07.9 Diagnosis: Principal Procedures none Brief History - From Admission The patient is a 40-year-old female with past medical history of Graves' disease and cardiomyopathy who is presenting to the hospital with chest pain and shortness of breath. She says she has had a rough week. She said she traveled to [place] and has had a lot of anxiety. She said the flu went through her household. She has been experiencing a dry cough with no sputum production. She says she has been taking Mucinex to try to cough things up. She said that today her chest started hurting her. The chest pain is located at the left side of her chest and radiates down her left arm. She said it was a 10 out of 10 pain in severity at its worst. She said the chest pain is gone at this time. She said she had a coughing spell earlier which led to a bout of vomiting. She has been experiencing chills. She has shortness of breath. She says she is unable to lie flat. She sometimes wakes up from a sound sleep very short of breath. She says her weight fluctuates. She has not noticed swelling in her lower extremities. She is currently search of a primary care doctor. 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 CBC/BMP: 03/31/16 0545 03/31/16 0545 Significant Findings Laboratory Tests Test 03/29/16 03/29/16 03/30/1617 21:16 23:44 03:40 09:35 Red Blood Count 5.32 MIL/MM3 (4.00-5.30) Mean Corpuscular Volume 76.0 FL 75.0 FL (80.0-100.0) (80.0-100.0) Mean Corpuscular Hemoglobin 26.4 PG 25.4 PG (27.0-34.0) (27.0-34.0) Monocytes (%) (Auto) 17.7 % 21.8 % (0.0-8.0) (0.0-8.0) Monocytes # (Auto) 1.4 TH/MM3 1.2 TH/MM3 (0-0.9) (0-0.9) D-Dimer Quantitative (PE/DVT) 1.07 MG/L FEU (0.00-0.50) Estimat Glomerular Filtration 85 ML/MIN (>89) Rate Random Glucose 126 MG/DL 140 MG/DL (74-106) (74-106) Troponin I 0.10 NG/ML 0.10 NG/ML 0.10 NG/ML (0.02-0.05) (0.02-0.05) (0.02-0.05) C-Reactive Protein 4.60 MG/DL (0.00-0.30) B-Type Natriuretic Peptide 272 PG/ML (0-100) Albumin 3.2 GM/DL 3.1 GM/DL (3.4-5.0) (3.4-5.0) Thyroid Stimulating Hormone LESS THAN 3rd Gen 0.005 uIU/ML (0.358-3.740) Urine Ketones 10 mg/dL (NEG) Urine Bacteria RARE /hpf (NONE) Urine Mucus FEW /lpf (OCC) Free Thyroxine 3.63 NG/DL (0.76-1.46) Free Triiodothyronine (T3) 9.18 PG/ML pg/dL (2.18-3.98) Test 03/31/16 05:45 Red Blood Count 5.35 MIL/MM3 (4.00-5.30) Mean Corpuscular Volume 76.2 FL (80.0-100.0) Mean Corpuscular Hemoglobin 25.2 PG (27.0-34.0) Lymphocytes (%) (Auto) 48.5 % (9.0-44.0) Monocytes (%) (Auto) 18.1 % (0.0-8.0) Neutrophils # (Auto) 1.7 TH/MM3 (1.8-7.7) Monocytes # (Auto) 1.0 TH/MM3 (0-0.9) Chloride Level 108 MEQ/L (98-107) Creatinine 0.49 MG/DL (0.50-1.00) Random Glucose 133 MG/DL (74-106) Albumin 3.0 GM/DL (3.4-5.0) Imaging Last Impressions CT Angiography 03/29/162229 Signed Impressions: Service Date/Time: Tuesday, March 29, 2016 23:19 - CONCLUSION: 1. No evidence of pulmonary embolism. 2. Small mild right lower lung infiltrate. Travis Amaya MD Chest X-Ray 03/29/162104 Signed Impressions: Service Date/Time: Tuesday, March 29, 2016 21:15 - CONCLUSION: 1. Cardiomegaly with mild basilar airspace disease. Car Perez MD Hospital Course Chest pain/ cardiomyopathy The pt has a history of cardiomyopathy s/t Grave's Disease. She presents with left sided chest pain. She has never had a stress test or cardiac cath. Symptoms have resolved. EKG with sinus tachycardia and inverted T waves in V5 and V6. Initial troponin is 0.1. BNP is 272. CT scan did reveal an infiltrate which could explain the pt's chest pain. No PE identified. Troponins monitored remaines stable at 0.1. Cardiology consulted. elevated cardiac enzymes thought to be secondary to demand ischemia from pna. Treated with diuretics and beta gricelda Patient placed on antibiotics for pna. - oxygen as needed. - PT. Grave's Disease The pt presents with symptoms of thyrotoxicosis. She improved with labetalol. - started on atenolol 50 mg daily. Hold home Lopressor. Free T4 elevated at 3.63. 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 Patient advised to follow up with primary physician and Finish Remover. Will need repeat TSH and free T4 in 4 to 6 weeks. Hypertensive emergency The pt's blood pressure has been markedly elevated. - resumed lisinopril and add atenolol. Will add amlodipine if needed. - Vasotec and clonidine as needed. - BP much improved prior to discharge. CAP CT scan revealed a small right sided infiltrate. - Treated with ceftriaxone and azithromycin. - sputum culture. Diabetes The pt is on metformin as an outpt. - hold metformin. - insulin sliding scale. PPx: Lovenox. Pt Condition on Discharge: Stable Discharge Disposition: Discharge Home Discharge Time: > 30 minutes Discharge Instructions DIET: Follow Instructions for: Diabetic Diet Activities you can perform: Regular-No Restrictions Activities to Avoid: Strenuous Activity Follow up Referrals: Cardiology - 2 Weeks with Sandra Paz MD PCP Follow-up - 1 Week New Medications: Azithromycin (Azithromycin) 500 Mg Tab 500 MG PO DAILY Infection #3 Ref 0 TAB Cefuroxime (Ceftin) 500 Mg Tab 500 MG PO BID Infection #8 Ref 0 TAB Methimazole (Methimazole) 10 Mg Tab 10 MG PO TID Thyroid #90 Ref 0 TAB Amlodipine (Norvasc) 5 Mg Tab 5 MG PO DAILY Blood Pressure Management #30 Ref 1 TAB Atenolol (Atenolol) 50 Mg Tab 50 MG PO DAILY Blood Pressure Management #30 Ref 1 TAB Furosemide (Furosemide) 20 Mg Tab 20 MG PO BID cardiomyopathy #60 Ref 1 TAB Lisinopril (Lisinopril) 20 Mg Tab 40 MG PO DAILY Blood Pressure Management #30 Ref 1 TAB Continued Medications: Metformin (Metformin) 500 Mg Tab 500 MG PO BIDPC With meals Blood Sugar Management #60 Ref 0 TAB (This prescription has been renewed) Discontinued Medications: Furosemide (Lasix) 20 Mg Tab 20 MG PO BID #60 Ref 0 TAB Lisinopril (Lisinopril) 20 Mg Tab 20 MG PO DAILY #30 Ref 0 TAB Metoprolol Tartrate (Metoprolol Tartrate) 50 Mg Tab 50 MG PO BID #60 Ref 0 TAB Samson Mcfadden MD Mar 31, 2016 14:59
[2016-03-31] MEDS ORDERED: METHIMAZOLE 10 MG TAB PO SCH (15:00)
[2016-03-31] MEDS ORDERED: PROP50TA2 PO (15:09)
[2016-03-31] MEDS ORDERED: PROPYLTHIOURACIL 50 MG TAB PO SCH (15:15)
[2016-03-31 15:53] LABS: HEMOGLOBIN A1a 1.2 %; HEMOGLOBIN A1b 1.1 %; HEMOGLOBIN Ao 83.1 %; HEMOGLOBIN LA1C 2.1 %
[2016-04-07] MEDS ORDERED: ATEN50TA PO (11:43)
[2016-04-07] MEDS ORDERED: METF500T PO (11:43)
[2016-04-07] MEDS ORDERED: PROP50TA2 PO (11:43)
[2016-04-07] MEDS ORDERED: FURO20TA PO (11:43)
[2016-04-07] MEDS ORDERED: LISI-515 PO (11:43)
[2016-04-07] MEDS ORDERED: AMLO5 PO (11:43)
[2016-05-05] MEDS ORDERED: AMLO5 PO (12:29)
[2016-07-06] MEDS ORDERED: AMLO5 PO (09:52)
[2016-08-25] MEDS ORDERED: ATEN50TA PO (07:50)
== END 2016-03-31 17:32 | disposition home or self-care (01) | DRG 311 ==
LOC: NEPC 20:55 → NEDA 23:01 → NEDH 03-30 03:06 → HCIS 03-30 10:18
PROVIDERS: ADMIT Hospitalist; ATTEND Hospitalist
DX: I24.8 Other forms of acute ischemic heart disease (principal); I11.0 Hypertensive heart disease with heart failure; I50.9 Heart failure, unspecified; I43 Cardiomyopathy in diseases classified elsewhere; J18.9 Pneumonia, unspecified organism; Z68.41 Body mass index [BMI] 40.0-44.9, adult; E66.01 Morbid (severe) obesity due to excess calories; I16.1 Hypertensive emergency; J06.9 Acute upper respiratory infection, unspecified; E05.00 Thyrotoxicosis with diffuse goiter without thyrotoxic crisis or storm; E11.9 Type 2 diabetes mellitus without complications; F41.9 Anxiety disorder, unspecified; Z91.19 Patient's noncompliance with other medical treatment and regimen; Z79.84 Long term (current) use of oral hypoglycemic drugs
CPT/HCPCS: 71010; 71275; 80053; 81001; 82550; 82552; 82948; 83036; 83690; 83735; 83880; 84100; 84439; 84443; 84481; 84484; 84702; 84703; 85025; 85379; 85610; 85730; 86140; 93005; 94640; 94664; 96374; J0456; J0696; J1650; J1815; J1940; J7050; Q9967